=== PATIENT | female | born 1975 | race Caucasian/White ===

== ENCOUNTER → 2019-11-28 | Outpatient (CLI) | payer OTHER ==
[~2019-11-28] MED LIST: EFFE150C2 PO; HYDR-3715 PO; IBUP80TA PO; LABE10TAB PO; MAPA500T2 PO; PRENTAB40 PO; RANI15TA PO; SENN-53 PO; TYLE325T5 PO; VENL150T14 PO
--- NOTE | 2019-11-28 15:47 | REPMRS ---
Patient History The patient states she has not had a clinical breast exam in over a year. Family history of ovarian cancer at age 50 or over in paternal grandmother. No Hormone Replacement Therapy Digital Woman Screen Mammo: November 28, 2019 - Exam #: [id number] Bilateral CC and MLO view(s) were taken. Technologist: Adeola Spence, Technologist Prior study comparison: July 16, 2017, bilateral digital woman screen mammo, performed at [facility]. FINDINGS: The breast tissue is heterogeneously dense. This may lower the sensitivity of mammography. There is a moderate amount of heterogeneously dense fibroglandular tissue which is fairly symmetric. There is no interval development of dominant mass, architectural distortion, or grouped microcalcification typical of malignancy. There has been no change in the appearance of the mammogram from the prior studies. 3-D tomosynthesis shows no additional findings. Assessment: BI-RADS/ACR category 1 mammogram. Negative Mammogram. Recommendation Routine screening mammogram of both breasts in 1 year (for women over age 40). This patient's Lifetime Breast Cancer RIsk is estimated at 10.5 %. This mammogram was interpreted with the aid of an FDA-approved computer-aided dectection system. Electronically Signed By: Govind Viera MD 11/28/19 [id number]
== END ==
LOC: M WHC 14:46
PROVIDERS: ATTEND Physician Assistant Medical
DX: Z12.31 Encounter for screening mammogram for malignant neoplasm of breast (principal)

== ENCOUNTER 2020-05-26 09:45 | Emergency (ER) | payer MEDICARE, OTHER ==
[~2020-05-26] VITALS: Ht 167.6 cm; Wt 115.9 kg
[2020-05-26] MEDS ORDERED: BUPR50TA PO (09:58)
[2020-05-26] MEDS ORDERED: NORV5TAB PO (09:58)
[2020-05-26] MEDS ORDERED: GEMF600T5 PO (09:58)
[2020-05-26] MEDS ORDERED: VITA50005 PO (09:58)
[2020-05-26] MEDS ORDERED: IBUP1TAB7 PO (09:58)
[2020-05-26] MEDS ORDERED: PANT40TA3 PO (09:58)
[2020-05-26] MEDS ORDERED: ATOR1TAB21 PO (09:58)
[2020-05-26] MEDS ORDERED: LISI40TA PO (09:58)
--- NOTE | 2020-05-26 10:39 | REP ---
Clinical: Trauma. Technique: AP, lateral, bilateral oblique views of the left knee. Findings: Lateral view demonstrates joint and suprapatellar effusion. 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 No obvious acute fracture or dislocation identified. Impression: Effusion and degenerative changes. No acute fracture or dislocation appreciated. Electronically Signed by Saleem Granados MD 05/26/2020 10:30 A
[2020-05-26] MEDS ORDERED: NORCO, ANEXSIA 5/325MG TABLET (HYDROcodone/ACETAMINOPHEN) PO ONE (10:45)
[2020-05-26] MEDS ORDERED: ONDANSETRON 4 MG ORAL DISINTEGRATING TAB PO ONE (11:30)
[2020-05-26] MEDS ORDERED: NORC1TAB7 PO (12:58)
[2020-05-26 13:07] VITALS: BP 133/84
== END 2020-05-26 13:08 | disposition home or self-care (01) ==
LOC: M ED 09:45
DX: S89.92XA Unspecified injury of left lower leg, initial encounter (principal); W22.03XA Walked into furniture, initial encounter; Y92.9 Unspecified place or not applicable; Y93.9 Activity, unspecified; Y99.9 Unspecified external cause status; I10 Essential (primary) hypertension; E78.5 Hyperlipidemia, unspecified; K21.9 Gastro-esophageal reflux disease without esophagitis; F17.210 Nicotine dependence, cigarettes, uncomplicated; F12.10 Cannabis abuse, uncomplicated; F41.9 Anxiety disorder, unspecified; Z88.0 Allergy status to penicillin; Z88.1 Allergy status to other antibiotic agents; Z88.2 Allergy status to sulfonamides; Z88.7 Allergy status to serum and vaccine; Z91.040 Latex allergy status; Z79.899 Other long term (current) drug therapy
CPT/HCPCS: 73564; 99284; Q0162

== ENCOUNTER 2020-06-17 21:28 | Emergency (ER) | payer OTHER ==
[~2020-06-17 21:28] MED LIST changes: +ATOR1TAB21 PO; +BUPR-69 PO; +GEMF600T5 PO; +IBUP1TAB7 PO; +LISI40TA PO; +NORC1TAB7 PO; +NORV5TAB PO; +PANT40TA29 PO; +VITA50005 PO
== END 2020-06-17 22:17 | disposition left against medical advice (07) ==
LOC: M ED 21:28
DX: Z53.21 Procedure and treatment not carried out due to patient leaving prior to being seen by health care provider (principal)

== ENCOUNTER → 2020-12-20 | Outpatient (CLI) | payer OTHER ==
[~2020-12-20] MED LIST changes: +LABE100T4 PO; -LABE10TAB PO
--- NOTE | 2020-12-20 11:09 | REPMRS ---
Patient History The patient states she has not had a clinical breast exam in over a year. Family history of ovarian cancer at age 50 or over in paternal grandmother. No Hormone Replacement Therapy Digital Woman Screen Mammo: December 20, 2020 - Exam #: [id number] Bilateral CC and MLO view(s) were taken. Technologist: Kaylee Koo, Technologist Prior study comparison: November 28, 2019, bilateral digital woman screen mammo performed at [facility]. July 16, 2017, bilateral digital woman screen mammo, performed at [facility]. FINDINGS: There are scattered fibroglandular densities. The Volpara volumetric breast density category is:B. There has been no change in the appearance of the mammogram from the prior studies. There is a mild amount of scattered fibroglandular density which is fairly symmetric. There is no interval development of dominant mass, architectural distortion, or grouped microcalcification suggestive of malignancy. 3-D tomosynthesis shows no additional findings. Assessment: BI-RADS/ACR category 1 mammogram. Negative Mammogram. Recommendation Routine screening mammogram of both breasts in 1 year (for women over age 40). This patient's [facility] Lifetime Breast Cancer Risk is estimated at 10.4 %. This mammogram was interpreted with the aid of an FDA-approved computer-aided dectection system. Electronically Signed By: Govind Viera MD 12/20/20 2309
== END ==
LOC: M WHC 10:20
PROVIDERS: ATTEND Physician Assistant Medical
DX: Z12.31 Encounter for screening mammogram for malignant neoplasm of breast (principal); Z80.41 Family history of malignant neoplasm of ovary